=== PATIENT | female | born 1945 | race Caucasian/White ===

== ENCOUNTER 2023-01-02 22:53 | Emergency (ER) | payer MEDICARE, SELFPAY ==
--- NOTE | ~2023-01-02 | XR_ITS ---
EXAMINATION: XR chest 1V portable DATE: 01/02/2023 23:31 INDICATION: Syncope. Nausea. TECHNIQUE: A single frontal view of the chest was obtained. COMPARISON: Chest single view 02/08/2019 FINDINGS: There is no pneumonia, pleural effusion, or pneumothorax. The heart size is normal. There a re old healed bilateral rib fractures. IMPRESSION: 1. No acute cardiopulmonary disease. Reviewed, dictated and finalized at location E. THESIOLOGY TECHNOLOGIST
--- NOTE | ~2023-01-02 | CT_ITS ---
EXAMINATION: CTA chest PE protocol DATE: 01/03/2023 01:59 INDICATION: Syncope. TECHNIQUE: Computed tomography angiography (CTA) of the chest was performed with 100 mL Omnipaque-350 intravenous contrast timed to evaluate the pulmonary arteries. Coronal maximum intensity projection 3D-reconstructions were created by the technologist. Automated exposure control and iterative reconst ruction technique were employed. The dose-length product was 248.54 mGy-cm. COMPARISON: Chest single view 01/02/2023 FINDINGS: There is mild atelectasis bilaterally. There are groundglass opacities and interstitial opa cities in left upper lobe. There is mild bronchiectasis in right lower lobe. No pleural effusion. The re are nodules in the thyroid measuring up to 7 mm, likely not clinically significant. There is a sma ll sliding hiatal hernia. The heart demonstrates right ventricular enlargement, consistent with right heart strain. No pericardial effusion. There are acute pulmonary emboli in all lobes including a sad dle embolus in main pulmonary artery. There is a 16 mm cyst in the liver. There is severe thoracic sp ondylosis. There is dextroscoliosis of thoracic spine. IMPRESSION: 1. Extensive acute pulmonary emboli with right heart strain. 2. Focal mild pulmonary edema in left upper lobe. Reviewed, dictated and finalized at location A. NISTRATIVE SERVICES DIRECTOR
[2023-01-02 22:53] VITALS: TEMP 35.9
--- NOTE | 2023-01-02 23:21 | ECG_ITS ---
Measurements Intervals [place] Rate: 122 P: VA: 0 QRS: -15 QRSD: 96 T: 48 QT: 338 QTc: 482 Interpretive Statements SINUS TACHYCARDIA LOW QRS VOLTAGE IN PRECORDIAL LEADS INCOMPLETE RIGHT BUNDLE BRANCH BLOCK NONSPECIFIC ST & T-WAVE ABNORMALITY- DIFFUSE LEADS ABNORMAL ECG COMPARED TO ECG 02/08/2019 17:32:25 SINUS TACHYCARDIA NOW PRESENT INCOMPLETE RIGHT BUNDLE-BRANCH BLOCK NOW PRESENT Electronically Signed On 01-03-2023 7:01:08 PROJECT/PRODUCTION MANAGER IMAGING by Shan Morrow D.O.
[2023-01-02] MEDS: SODIUM CHLORIDE 0.9% IV 1,000 ML 999 ML IV CONT (23:34)
[2023-01-02 23:48] VITALS: PULSE 119; RESP 17
[2023-01-03] VITALS (49 sets, daily range): BP systolic 95–128; BP diastolic 65–83; PULSE 99–126; RESP 14–29; TEMP 36.7; O2SAT 93–96
[2023-01-03 00:23] LABS: Alanine Aminotransferase 23 U/L (6-35); Albumin Level 3.7 g/dL (3.5-5.1); Alkaline Phosphatase 148 U/L (38-126); Anion Gap 9 mmol/L (8-16); Aspartate Amino Transferase 39 U/L (14-36); Bilirubin,Total 1.7 mg/dL (0.2-1.3); Blood Urea Nitrogen 22 mg/dL (7-17); Calcium 8.7 mg/dL (8.4-10.2); Carbon Dioxide 26 mmol/L (22-30); Chloride 101 mmol/L (98-107); Estimated CRCL calculation 46 ml/min; Estimated Glomerular Filt Rate > 60; Glucose 122 mg/dL (65-110); Lipase 134 U/L (23-300); Magnesium 2.1 mg/dL (1.6-2.3); Potassium 3.9 mmol/L (3.4-5.0); Sodium 136 mmol/L (137-145)
[2023-01-03 00:24] LABS: Lactic Acid Reflex 1.5 mmol/L (0.7-2.0)
[2023-01-03 00:33] LABS: Basophils Percent Auto 0.4 % (0.2-1.2); Eosinophils Absolute Auto 0.2 K/mm3 (0-0.3); Eosinophils Percent Auto 2.8 % (0-4.4); Hematocrit 42.6 % (37.0-47.0); Hemoglobin 13.4 g/dL (12.0-15.0); Immature Granulocyte Absolute 0.07 K/mm3 (0.00-0.031); Immature Granulocyte Percent A 0.8 % (0-0.5); Lymphocytes Absolute Auto 0.28 K/mm3 (0.9-3.2); Lymphocytes Percent Auto 3.3 % (18.3-44.2); Mean Corpuscular HGB Conc 31.5 g/dl (32-36); Mean Corpuscular Hemoglobin 31.5 pg (26-34); Mean Platelet Volume 9.9 fl (7.4-10.4); Monocytes Absolute Auto 0.5 K/mm3 (0.1-0.6); Monocytes Percent Auto 6.3 % (2.6-8.5); Neutrophils Absolute Auto 7.3 K/mm3 (1.3-6.7); Neutrophils Percent Auto 86.4 % (45.5-73.1); Platelet Count Result 147 k/mm3 (150-375); Red Blood Count 4.26 M/mm3 (4.2-5.4); Red Cell Distribution Width 14.2 % (11.5-14.5); White Blood Count 8.5 K/mm3 (4.5-10.0)
[2023-01-03 00:35] LABS: Prothrombin Time 14.1 Seconds (11.1-14.7)
[2023-01-03 00:36] LABS: Partial Thromboplastin Time 27.8 SECONDS (22.3-36.8)
[2023-01-03 00:44] LABS: NT Pro B Type Natriuretic Pept 38 pg/mL (19.9-100); Troponin I 0.311 ng/mL (0.000-0.034)
--- NOTE | 2023-01-03 01:05 | ECG_ITS ---
Measurements Intervals [place] Rate: 118 P: 32 UT: 167 QRS: -15 QRSD: 90 T: -2 QT: 306 QTc: 430 Interpretive Statements SINUS TACHYCARDIA INCOMPLETE RIGHT BUNDLE BRANCH BLOCK LOW QRS VOLTAGE IN PRECORDIAL LEADS VOLTAGE CRITERIA FOR LVH BORDERLINE T WAVE ABNORMALITY- INFERIOR LEADS BASELINE ARTIFACT- I, III ABNORMAL ECG COMPARED TO ECG 01/02/2023 22:58:28 NO SIGNIFICANT CHANGES Electronically Signed On 01-03-2023 7:03:26 NAIL FEEDER by Shan Morrow D.O.
[2023-01-03 01:51] LABS: Appearance Urine Clear (Clear); Bacteria Urine None Seen /hpf; Bilirubin Urine Negative (Negative); Blood Urine Negative (Negative); Color Urine Yellow (Yellow); Glucose Urine UA Negative (Negative); Ketones Urine 1+ mg/dL (Negative); Leukocyte Esterase Ur Negative LEU/UL (Negative); Nitrate Urine Negative (Negative); Protein Urine 1+ mg/dL (Negative); RBC Urine 0-2 /hpf (0-2); Specific Grav Ur 1.027 (1.001-1.035); Squamous Epithelial Cell Urine Occasional /hpf (Few); Urobilinogen Urine 0.2 mg/dL (<2.0); WBC Urine 0-5 /hpf
[2023-01-03 02:03] LABS: Add Urine Microscopic? YES
[2023-01-03] MEDS: HEPARIN SODIUM 5,000 UNITS/ML VIAL 5000 UNITS IV PUSH (02:52)
--- NOTE | 2023-01-03 02:52 | ED.GENADULT ---
HPI - General Adult General Chief complaint: Syncope Stated complaint: SYNCOPE Time Seen by Provider: 01/02/23 23:15 History of Present Illness HPI narrative: Patient 78-year-old female presents emergency department with chief complaint of syncopal episode. Patient reports that she has been having issues with low back pain and is actually been minimally ambulatory for several weeks the patient reports she has been seeing neurosurgery and actually had an appointment earlier today and was started on hydrocodone. The patient states she took a dose of hydrocodone this evening and the as she was getting up felt lightheaded and then had about 30 second episode of passing out. Patient was tachycardic afterwards Related Data Home Medications Medication Instructions Recorded Confirmed B Complex 02/08/19 lisinopril 10 mg tablet 02/08/19 [id number] 8 mg-folic 400 tablet PO 02/08/19 mcg-K 50 mcg-lutein 300 mcg tablet (Multivitamin Women 50 Plus) Allergies Allergy/AdvReac Type Severity Reaction Status Date / Time No Known Drug Allergies Allergy Mild NONE Verified 01/02/23 22:59 Review of Systems Review of Systems: A 10 system review of systems was completed on the patient and is negative except for what is stated in the HPI. Nursing and ancillary documentation was reviewed. Exam Narrative: GENERAL: Well-appearing, well-nourished, and in no acute distress. HEAD: Normocephalic, atraumatic. EYES: PERRLA and EOMI. ENT: Nares clear, no rhinorrhea or epistaxis. Mucous membranes moist. NECK: Supple. CHEST: Clear to auscultation. No respiratory distress. HEART: Tachycardic rate and regular rhythm. No murmur heard. Normal peripheral pulses. ABDOMEN: Soft, nontender, nondistended, normal active bowel sounds. EXTREMITIES: Normal range of motion. No edema. SKIN: Warm, dry, no rash. NEURO: No focal deficits. Alert and oriented x3. PSYCH: Normal mood and affect. Course Vital Signs Vital signs: Vital Signs Temperature 35.9 C L 01/02/23 22:53 Temperature 35.9 C L 01/02/23 22:53 Pulse Rate 114 H 01/03/23 06:31 Respiratory Rate 17 01/03/23 06:31 Blood Pressure 128/83 01/03/23 06:30 Pulse Oximetry 93 01/03/23 00:39 Medical Decision Making Vital Signs Vital Signs: Vital Signs Temperature 35.9 C L 01/02/23 22:53 Temperature 35.9 C L 01/02/23 22:53 Pulse Rate 114 H 01/03/23 06:31 Respiratory Rate 17 01/03/23 06:31 Blood Pressure 128/83 01/03/23 06:30 Pulse Oximetry 93 01/03/23 00:39 Lab Data 01/03/23 00:01 01/03/23 00:01 Labs: Lab Results 01/03/23 01/03/23 Range/Units 00:01 01:34 WBC 8.5 (4.5-10.0) K/mm3 RBC 4.26 (4.2-5.4) M/mm3 Hgb 13.4 (12.0-15.0) g/dL Hct 42.6 (37.0-47.0) % MCV 100.0 (80-100) fl MCH 31.5 (26-34) pg MCHC 31.5 L (32-36) g/dl RDW 14.2 (11.5-14.5) % Plt Count 147 L (150-375) k/mm3 MPV 9.9 (7.4-10.4) fl Immature Gran % (Auto) 0.8 H (0-0.5) % Neut % (Auto) 86.4 H (45.5-73.1) % Lymph % (Auto) 3.3 L (18.3-44.2) % [place] % (Auto) 6.3 (2.6-8.5) % Eos % (Auto) 2.8 (0-4.4) % Baso % (Auto) 0.4 (0.2-1.2) % Lymph # (Auto) 0.28 L (0.9-3.2) K/mm3 [place] # (Auto) 0.5 (0.1-0.6) K/mm3 Eos # (Auto) 0.2 (0-0.3) K/mm3 Baso # (Auto) 0.0 (0.0-0.1) K/mm3 Abs Immat Gran (auto) 0.07 H (0.00-0.031) K/mm3 Absolute Neuts (auto) 7.3 H (1.3-6.7) K/mm3 Absolute Nucleated RBC 0.0 (0.0-0.012) K/mm3 Nucleated RBC % 0.0 (0.0-0.2) % % Immature Plt Fraction 3.0 (0.9-11.2) % PT 14.1 (11.1-14.7) Seconds INR 1.0 APTT 27.8 (22.3-36.8) SECONDS Sodium 136 L (137-145) mmol/L Potassium 3.9 (3.4-5.0) mmol/L Chloride 101 (98-107) mmol/L Carbon Dioxide 26 (22-30) mmol/L Anion Gap 9 (8-16) mmol/L BUN 22 H (7-17) mg/dL Creatinine 0.90 (0.7-1.0) mg/dL Estim Creat Clear Calc 46 ml/min Est
[2023-01-03] MEDS: HEPARIN SOD/D5W 100 UNITS/ML 25,000 UNITS/250 ML BAG 12 UNITS IV CONT (02:53)
[2023-01-03] MEDS: MORPHINE SULFATE (*CRX) 4 MG/ML INJ 2 MG IV PUSH (06:29)
[2023-01-03 08:58] LABS: Basophils Percent Auto 0.2 % (0.2-1.2); Eosinophils Percent Auto 0.2 % (0-4.4); Hematocrit 40.3 % (37.0-47.0); Immature Granulocyte Absolute 0.23 K/mm3 (0.00-0.031); Lymphocytes Absolute Auto 0.38 K/mm3 (0.9-3.2); Lymphocytes Percent Auto 3.3 % (18.3-44.2); Mean Corpuscular HGB Conc 32.3 g/dl (32-36); Mean Corpuscular Hemoglobin 32.2 pg (26-34); Mean Corpuscular Volume 99.8 fl (80-100); Mean Platelet Volume 9.7 fl (7.4-10.4); Monocytes Absolute Auto 0.6 K/mm3 (0.1-0.6); Monocytes Percent Auto 5.5 % (2.6-8.5); Neutrophils Absolute Auto 10.3 K/mm3 (1.3-6.7); Neutrophils Percent Auto 88.8 % (45.5-73.1); Platelet Count Result 134 k/mm3 (150-375); Red Blood Count 4.04 M/mm3 (4.2-5.4); Red Cell Distribution Width 14.3 % (11.5-14.5); White Blood Count 11.6 K/mm3 (4.5-10.0)
[2023-01-03 09:56] LABS: INR 1.1; Prothrombin Time 14.9 Seconds (11.1-14.7)
[2023-01-03 10:24] LABS: Partial Thromboplastin Time > 200.0 SECONDS (22.3-36.8)
--- NOTE | 2023-01-03 10:26 | PC.NURSE ---
Heparin stopped per protocol. Pt to [facility] via [place] [facility].
--- NOTE | 2023-01-03 10:32 | PC.NURSE ---
Pt update given to Isael at [facility].
== END 2023-01-03 10:33 | disposition short-term general hospital (02) ==
PROVIDERS: Emergency Provider Emergency Medicine
DX: I26.99 Other pulmonary embolism without acute cor pulmonale (principal); R79.89 Other specified abnormal findings of blood chemistry; Z79.891 Long term (current) use of opiate analgesic
CPT/HCPCS: 36415; 71045; 71275; 80053; 81001; 83605; 83690; 83735; 83880; 84484; 85025; 85055; 85610; 85730; 93005; 96365; 96366; 96375; 99285; J1644; J2270; J7030; Q9967